=== PATIENT | male | born 1985 | race Caucasian/White ===

== ENCOUNTER 2022-09-10 10:15 | Emergency (ER) | payer OTHER ==
[~2022-09-10] VITALS: Ht 177.8 cm; Wt 63.6 kg
[2022-09-10] MEDS ORDERED: ONDANSETRON 4MG 2ML VIAL IV ONE (11:00)
[2022-09-10] MEDS ORDERED: KETOROLAC 30 MG/ML 1ML VIAL IV ONE (11:00)
[2022-09-10] MEDS ORDERED: NS 1,000 ML IV ONE (11:20)
[2022-09-10 11:25] LABS: BASO % 0.3 % (0.0-1.0); EOS # 0.1 10^3/uL (0.0-0.5); HEMATOCRIT 51.6 % (42.0-52.0); HEMOGLOBIN 17.7 g/dl (13.5-17.5); LYMPH # 0.7 10^3/uL (1.5-5.0); LYMPH % 10.3 % (24.0-44.0); MEAN CORPUSCULAR HGB CONC 34.3 g/dl (32.0-36.5); MEAN CORPUSCULAR VOLUME 87.5 fl (80.0-96.0); MONO # 0.7 10^3/uL (0.0-0.8); MONO % 10.8 % (2.0-8.0); NEUTROPHILS # 5.3 10^3/uL (1.5-8.5); NEUTROPHILS % 77.2 % (36.0-66.0); PLATELET COUNT, AUTOMATED 209 10^3/uL (150-450); WHITE BLOOD COUNT 6.9 10^3/uL (4.0-10.0)
[2022-09-10] MEDS ORDERED: ISOVUE-370 76% 100ML VIAL As Ordered ONE (11:39)
[2022-09-10 12:11] LABS: ALBUMIN 3.8 GM/DL (3.2-5.2); BILIRUBIN,DIRECT 0.2 MG/DL (0.0-0.2)
[2022-09-10] MEDS ORDERED: ONDA4TAB6 PO (12:36)
[2022-09-10 12:43] VITALS: BP 128/78
== END 2022-09-10 12:46 | disposition home or self-care (01) ==
LOC: M ED 10:15
DX: K52.9 Noninfective gastroenteritis and colitis, unspecified (principal)
CPT/HCPCS: 74177; 80047; 80076; 81000; 81015; 83605; 83690; 85025; 87040; 96361; 96374; 96375; 99284; J1885; J2405; Q9967

== ENCOUNTER → 2022-09-11 | Outpatient (REF) | payer OTHER ==
[~2022-09-11] MED LIST: ONDA4TAB6 PO
== END ==
LOC: M LAB REF 09:51
PROVIDERS: ATTEND Physician Assistant
DX: K52.9 Noninfective gastroenteritis and colitis, unspecified (principal)